=== PATIENT | male | born 1950 | race Caucasian/White ===

== ENCOUNTER → 2018-01-08 | Day surgery (SDC) | payer MEDICARE, BC ==
[~2018-01-08] MED LIST: Bupivacaine/Epinephrine 0.25% 30 ML VIAL ONE; CEFAZOLIN/Water 2 GM/20 ML SYRINGE ONE; Fentanyl 100 MCG/2 ML VIAL ONE; Glycopyrrolate 0.2 MG/ML 5 ML SYRINGE ONE; HYDROcodone/Acetaminophen 10/325 mg Tablet ONE; Ketorolac Tromethamine 30 MG/ML VIAL ONE; Lidocaine 1% PF 5 ML VIAL ONE; PROPOFOL 200 MG/20 ML VIAL ONE
[2018-01-08 10:09] LABS: #Basophils 0.1 thou/uL (0.0-0.2); #Eosinphils 0.2 thou/uL (0.0-0.7); #Lymphocytes 1.5 thou/uL (1.20-3.40); #Monocytes 0.5 thou/uL (0.11-0.59); #Neutrophils 4.8 thou/uL (1.40-6.50); %Basophils 0.9 % (0.0-1.0); %Eosinophils 2.3 % (0.0-10.0); %Lymphocytes 21.2 % (21.0-51.0); %Neutrophils 68.6 % (42.0-75.0); Hemoglobin 16.8 g/dL (14.0-18.0); Mean Corpuscular HGB CONC 34.5 g/dL (32.0-36.0); Mean Corpuscular Hemoglobin 33.6 pg (27.0-31.0); Mean Corpuscular Volume 97.3 fl (80.0-94.0); Mean Platelet Volume 6.9 fL (7.4-10.4); Platelet Count 217 thou/uL (130-400); RBC Distribution Width 11.5 % (11.5-14.5); Red Blood Cell (RBC) Count 4.99 mill/uL (4.70-6.10)
[2018-01-08 10:30] LABS: Anion Gap 14 mmol/L (10-20); BUN (Urea Nitrogen) 21 mg/dL (8.4-25.7); Calc. Creatinine Clearance 0 mL/min (70-130); Calcium 10.2 mg/dL (7.8-10.44); Carbon Dioxide 25 mmol/L (23-31); Chloride 103 mmol/L (98-107); Estimated GFR-MDRD 46; Glucose 108 mg/dL (80-115); Potassium 4.2 mmol/L (3.5-5.1); Sodium 138 mmol/L (136-145)
--- NOTE | 2018-01-09 09:56 | OP ---
DATE OF PROCEDURE: 01/08/2018 PREOPERATIVE DIAGNOSES: Umbilical hernia, bilateral inguinal hernia. POSTOPERATIVE DIAGNOSES: Umbilical hernia, bilateral inguinal hernia with bilateral direct inguinal hernias. OPERATION PERFORMED: Robotic bilateral inguinal hernia repair, open umbilical hernia repair, using s eparate pieces of mesh for all three hernias. SURGEON: Anastacio Solis M.D. ANESTHESIA: General endotracheal. INDICATIONS: The patient is a 67-year-old white male. He presented for evaluation of a large visibl e umbilical hernia and on examination was noted to have bilateral inguinal hernias as well. He is ta vladislav to the operating room at this time for robotic repair of the two inguinal hernias and open repair of the umbilical hernia. DESCRIPTION OF OPERATION: Informed consent was obtained. The patient was taken to the operating tamie m where general endotracheal anesthesia obtained with the patient in supine position. Colindres catheter was placed, abdomen was prepped with ChloraPrep and draped in sterile fashion. Local anesthetic was infiltrated using 0.25% Marcaine with epinephrine and a supraumbilical 12 mm incision was created th rough which a Veress needle was passed into the peritoneal cavity. Pneumoperitoneum was established using carbon dioxide up to a pressure of 15 mmHg. A 12 mm trocar port was passed through this same i ncision and robotic camera was passed through this port. Under direct vision, 2 additional 8 mm robo tic ports were placed on either side of midline at the supraumbilical level. The robot was then docked to the 3 ports into the robotic camera and the operation was continued from the robotic console. Inspection of the pelvic area revealed minimal visible evidence of an inguinal hernia. Attention was turned first to the right side. A transverse peritoneal incision was created and preperitoneal dissection was carried inferiorly. The patient had a thick layer of preperitoneal fat coating his abdominal wall that somewhat hampered the dissection. As the dissection was carried inferiorly, to the medial aspect I dissected the pubic tubercle and Demar's ligament. Laterally, I dissected the preperitoneal space passed the iliopubic tract. There was noted to be no evidence of an indirect inguinal hernia, however, in the direct space, there was a large volume of preperitoneal fat that was herniated through an obvious fairly substantial direct defect. After the peritoneum had been dissected widely, a large 3DMax mesh patch was obtained and placed with in the preperitoneal space where it fit nicely. It was secured in place with 3 interrupted sutures o f 2-0 Vicryl, placing one to the pubic tubercle, one to the anterior abdominal wall just medial to th e epigastric vessels, and one in the far lateral aspect of the mesh patch. The peritoneum was then c losed with a running suture of 3-0 Stratafix. Attention was then turned to the left side. A mirror image transverse incision was created. The rosalba e dissection was carried out. The patient was again noted to have a direct defect. The same size me sh patch was placed in the left side and secured in the same fashion and the peritoneum was then clos ed. The robotic ports were removed under direct vision. Attention was then turned to the umbilical herni a. Of note, when the port was placed, supraumbilical, it was intentionally placed through the umbilical hernia defect. The transverse umbilical incision was extended and the umbilicus was then widely diss ected off the underlying fascial defect. It was dissected anteriorly and posteriorly. I selected 4. 3 cm Ventralex mesh patch. This was placed in the preperitoneal space and the tails were pulled thro ugh the defect. They were then secured to the anterior aspect of the fascia superiorly and inferiorl y using single interrupted sutures of 0 Prolene. The lateral aspects of the defect were then secured with additional sutures of 0 Prolene, incorporating anterior bites of the anterior leaflet of the me sh patch. The umbilicus was then secured down to the fascia with 2 interrupted sutures of 3-0 Vicryl. The subc utaneous tissue was approximated with running suture of 3-0 Monocryl and the skin edges closed with 4 -0 Monocryl. Dermabond was placed externally. A compression dressing was an effected of cotton ball s with a Tegaderm dressing and Mastisol. The lateral robotic ports were closed with 4-0 Monocryl as well. There were no complications. Blood loss was negligible. The patient tolerated the procedure well and was taken to recovery room in sta ble condition.
--- NOTE | 2018-01-19 13:02 | EKG ---
Test Reason : PREOP Blood Pressure : / mmHG Vent. Rate : 063 BPM Atrial Rate : 063 BPM P-R Int : 162 ms QRS Dur : 092 ms QT Int : 406 ms P-R-T Axes : 027 -25 026 degrees QTc Int : 415 ms Normal sinus rhythm Normal ECG When compared with ECG of 12-DEC-2016 13:20, No significant change was found Confirmed by DR. Isidro HAYDEN ([id number]) on 01/19/2018 1:02:18 PM Referred By: ELLIE Confirmed By:DR. Isidro HAYDEN
== END ==
LOC: SDC 09:30
PROVIDERS: ATTEND Specialist
PROC: 0YUA4JZ Supplement Bilateral Inguinal Region with Synthetic Substitute, Percutaneous Endoscopic Approach (ICD-10-PCS; principal; 2018-01-08)
PROC: 0WUF0JZ Supplement Abdominal Wall with Synthetic Substitute, Open Approach (ICD-10-PCS; 2018-01-08)
DX: K40.20 Bilateral inguinal hernia, without obstruction or gangrene, not specified as recurrent (principal); K42.9 Umbilical hernia without obstruction or gangrene; F17.210 Nicotine dependence, cigarettes, uncomplicated; F41.9 Anxiety disorder, unspecified; F32.9 Major depressive disorder, single episode, unspecified; E78.5 Hyperlipidemia, unspecified; I10 Essential (primary) hypertension; K21.9 Gastro-esophageal reflux disease without esophagitis; Z79.899 Other long term (current) drug therapy; Z88.6 Allergy status to analgesic agent; Z88.8 Allergy status to other drugs, medicaments and biological substances
CPT/HCPCS: 49585; 49650; 80048; 85025; 93005; 96374; C1781 ×2; 36415; 93010; J0131; J1885; J2001; J2704; J3010

== ENCOUNTER 2021-08-09 11:57 | Outpatient (CLI) | payer MEDICARE, BC ==
[2021-08-09 22:21] LABS: SARS-CoV-2 PCR by NAA Not Detected (NotDetected)
== END 2021-08-09 11:58 | disposition home or self-care (01) ==
LOC: LABBT 11:57
PROVIDERS: ATTEND Urology
DX: Z01.812 Encounter for preprocedural laboratory examination (principal); Z20.822 Contact with and (suspected) exposure to COVID-19
CPT/HCPCS: U0003; U0005; 93005; 93010

== ENCOUNTER 2021-08-13 06:48 | Day surgery (SDC) | payer MEDICARE, BC ==
[2021-08-09 16:08] VITALS: BMI 29.4
[2021-08-13] MEDS ORDERED: Meropenem 1 GM in Sodium Chloride 0.9% 100 ML IVPB SCH (08:15)
[2021-08-13 08:18] LABS: #Eosinphils 0.1 thou/uL (0.0-0.7); #Lymphocytes 1.6 thou/uL (1.20-3.40); #Monocytes 0.8 thou/uL (0.11-0.59); #Neutrophils 5.4 thou/uL (1.40-6.50); %Basophils 0.5 % (0.0-1.0); %Eosinophils 1.6 % (0.0-10.0); %Lymphocytes 19.8 % (21.0-51.0); %Monocytes 9.7 % (0.0-10.0); %Neutrophils 68.4 % (42.0-75.0); Hemoglobin 16.4 g/dL (14.0-18.0); Mean Corpuscular HGB CONC 34.2 g/dL (32.0-36.0); Mean Corpuscular Hemoglobin 34.3 pg (27.0-31.0); Mean Platelet Volume 7.8 fL (7.4-10.4); Platelet Count 237 thou/uL (130-400); RBC Distribution Width 11.5 % (11.5-14.5); White Blood Cell (WBC) Count 7.9 thou/uL (4.8-10.8)
[2021-08-13 08:26] LABS: Anion Gap 18 mmol/L (10-20); BUN (Urea Nitrogen) 36 mg/dL (8.4-25.7); Calc. Creatinine Clearance 50 mL/min (70-130); Calcium 10.6 mg/dL (7.8-10.44); Carbon Dioxide 20 mmol/L (23-31); Chloride 98 mmol/L (98-107); Glucose 97 mg/dL (80-115); Potassium 3.5 mmol/L (3.5-5.1); Sodium 132 mmol/L (136-145)
[2021-08-13 08:34] LABS: PTT 36.1 sec (22.9-36.1); Prothrombin Time 13.6 sec (12.0-14.7)
[2021-08-13] MEDS ORDERED: Fentanyl 100 MCG/2 ML VIAL ONE (09:36)
[2021-08-13] MEDS ORDERED: Famotidine/PF 20 mg/2ml Vial ONE (09:36)
[2021-08-13] MEDS ORDERED: SUGAMMADEX SODIUM 200 MG/2 ML VIAL ONE (09:36)
[2021-08-13] MEDS ORDERED: Iothalamate Meglumine 60% 50 ML VIAL FS ONE (09:52)
[2021-08-13] MEDS ORDERED: Promethazine HCl 25 MG/ML VIAL IVPB PRN (09:57)
[2021-08-13] MEDS ORDERED: Ondansetron HCl/PF 4 MG/2 ML Vial IVP PRN (09:57)
[2021-08-13] MEDS ORDERED: Promethazine HCl 25 MG/ML VIAL IM PRN (09:57)
[2021-08-13] MEDS ORDERED: Dexamethasone 20 MG/5 ML VIAL ONE ×2 (10:06→10:38)
[2021-08-13] MEDS ORDERED: ePHEDrine 50 MG/ML VIAL ONE ×2 (10:06→10:38)
[2021-08-13] MEDS ORDERED: Lidocaine 1% PF 5 ML VIAL ONE ×2 (10:06→10:38)
[2021-08-13] MEDS ORDERED: Metoclopramide HCl 10 MG/2 ML VIAL ONE ×2 (10:06→10:38)
[2021-08-13] MEDS ORDERED: Ondansetron PF 4 MG/2 ML Vial ONE ×2 (10:06→10:38)
[2021-08-13] MEDS ORDERED: Phenylephrine 10 MG/ML VIAL ONE ×2 (10:06→10:38)
[2021-08-13] MEDS ORDERED: PROPOFOL 200 MG/20 ML VIAL ONE ×2 (10:06→10:38)
== END 2021-08-13 12:25 | disposition home or self-care (01) ==
LOC: SDC 06:48
PROVIDERS: ATTEND Urology
PROC: 0TND8ZZ Release Urethra, Via Natural or Artificial Opening Endoscopic (ICD-10-PCS; principal; 2021-08-13)
DX: N35.013 Post-traumatic anterior urethral stricture (principal); N31.2 Flaccid neuropathic bladder, not elsewhere classified; N40.0 Benign prostatic hyperplasia without lower urinary tract symptoms; N32.89 Other specified disorders of bladder; K21.9 Gastro-esophageal reflux disease without esophagitis; I10 Essential (primary) hypertension; E78.5 Hyperlipidemia, unspecified; M19.90 Unspecified osteoarthritis, unspecified site; G89.29 Other chronic pain; M54.9 Dorsalgia, unspecified; M79.7 Fibromyalgia; F17.210 Nicotine dependence, cigarettes, uncomplicated; B96.20 Unspecified Escherichia coli [E. coli] as the cause of diseases classified elsewhere; Z16.30 Resistance to unspecified antimicrobial drugs; Z79.2 Long term (current) use of antibiotics; Z79.899 Other long term (current) drug therapy; Z88.6 Allergy status to analgesic agent; Z88.8 Allergy status to other drugs, medicaments and biological substances; Z98.1 Arthrodesis status
CPT/HCPCS: 80048; 85025; 85610; 85730; J1100; J2185; J2370; J2405; J2704; J2765; J3010; J3490; Q9961-U8; S0028

== ENCOUNTER 2021-12-26 13:02 | Outpatient (CLI) | payer MEDICARE, BC | END 2021-12-26 13:03 | disposition home or self-care (01) | LOC: RAD 13:02 | PROVIDERS: ATTEND Internal Medicine Critical Care Medicine | DX: R06.00 Dyspnea, unspecified (principal) | CPT/HCPCS: 71046 ==

== ENCOUNTER 2024-06-06 13:13 | Inpatient (IN) | payer MEDICARE, BC ==
[2024-06-06] MEDS ORDERED: Dextrose 50% Abboject 50 ML SYRINGE SLOW IVP PRN (13:27)
[2024-06-06] MEDS ORDERED: Promethazine HCl 25 MG/ML VIAL IM PRN (13:27)
[2024-06-06] MEDS ORDERED: Ipratropium/Albuterol 3 ML NEB NEB PRN (13:27)
[2024-06-06] MEDS ORDERED: Dextrose 5% in Water 1,000 ML IV PRN (13:27)
[2024-06-06] MEDS ORDERED: hydrALAZINE 20 MG/ML VIAL SLOW IVP PRN (13:27)
[2024-06-06] MEDS ORDERED: Glucagon 1 MG/ML KIT IM PRN (13:27)
[2024-06-06] MEDS ORDERED: Ondansetron PF 4 MG/2 ML Vial IVP PRN (13:27)
[2024-06-06] MEDS: Lactated Ringer's 1,000 ML IV SCH (15:05)
[2024-06-06 15:29] VITALS: BMI 26.1
[2024-06-06 15:56] LABS: Hemoglobin 14.7 g/dL (14.0-18.0)
[2024-06-06] MEDS: Nicotine 14 MG PATCH TOP SCH (17:06)
[2024-06-06] MEDS: Melatonin 3 MG TAB PO PRN (20:10)
[2024-06-06] MEDS: Pantoprazole 40 MG VIAL IVP SCH (20:10)
[2024-06-07] MEDS: Morphine 4 MG/ML VIAL SLOW IVP PRN (02:32)
[2024-06-07 07:03] LABS: Anion Gap 12 mmol/L (10-20); BUN (Urea Nitrogen) 22 mg/dL (8.4-25.7); Calc. Creatinine Clearance 70 mL/min (70-130); Carbon Dioxide 21 mmol/L (23-31); Chloride 105 mmol/L (98-107); Estimated GFR 67; Glucose 83 mg/dL (83-110); Potassium 3.3 mmol/L (3.5-5.1); Sodium 135 mmol/L (136-145)
[2024-06-07 07:28] LABS: #Basophils 0.03 10x3/uL (0.0-0.2); %Basophils 0.4 % (0.0-1.0); %Eosinophils 0.5 % (0.0-10.0); %Lymphocytes 23.2 % (21.0-51.0); %Monocytes 8.5 % (0.0-10.0); %Neutrophils 67.1 % (42.0-75.0); Mean Corpuscular Hemoglobin 32.1 pg (27.0-31.0); Mean Corpuscular Volume 91.7 fL (78.0-98.0); Mean Platelet Volume 10.3 fL (7.4-10.4); Platelet Count 147 10x3/uL (130-400); Red Blood Cell (RBC) Count 4.36 mill/uL (4.70-6.10)
[2024-06-07] MEDS: Atenolol 50 MG TAB PO SCH (08:14)
[2024-06-07] MEDS ORDERED: traMADol HCl 50 MG TAB PO PRN ×2 (08:30)
[2024-06-08 11:08] VITALS: BP 124/80; TEMP 97.9
== END 2024-06-08 12:09 | disposition home or self-care (01) | DRG 379 ==
LOC: IMCU/EMU 14:36 → MSONC 06-07 17:27
PROVIDERS: ADMIT Surgery; ATTEND Surgery
DX: K92.2 Gastrointestinal hemorrhage, unspecified (principal); I10 Essential (primary) hypertension; K21.00 Gastro-esophageal reflux disease with esophagitis, without bleeding; F17.210 Nicotine dependence, cigarettes, uncomplicated; Z90.49 Acquired absence of other specified parts of digestive tract; K80.20 Calculus of gallbladder without cholecystitis without obstruction; K21.9 Gastro-esophageal reflux disease without esophagitis; F32.A Depression, unspecified; J44.9 Chronic obstructive pulmonary disease, unspecified; Z98.890 Other specified postprocedural states; F17.200 Nicotine dependence, unspecified, uncomplicated
CPT/HCPCS: 36415; 36430; 51702; 71045; 74177; 80048; 80053; 83605; 84484; 85025; 85610; 85730; 86850; 86900; 86901; 87040; 88304; 93005; 96374; 96375; C1889; J0612; J0694; J1100; J1720; J2272; J2405; J2470; J2543; J2704; J3010; J7120; P9016; P9048; P9059; Q9967

== ENCOUNTER 2025-05-13 06:03 | Day surgery (SDC) | payer MEDICARE, BC ==
[2025-05-12 12:02] VITALS: BMI 30.1
[2025-05-13] MEDS ORDERED: Albuterol 1.25 MG (3 mL) NEB ONE (06:54)
[2025-05-13] MEDS ORDERED: PROPOFOL 60 ML ONE (07:07)
[2025-05-13] MEDS ORDERED: fentaNYL PF 100 MCG/2 ML SYRINGE ONE (08:07)
[2025-05-13] MEDS ORDERED: Ondansetron PF 4 MG/2 ML Vial ONE (08:09)
[2025-05-13] MEDS ORDERED: PROPOFOL 20 ML ONE ×2 (08:42→08:44)
== END 2025-05-13 10:18 | disposition home or self-care (01) ==
LOC: SDC 06:03
PROVIDERS: ATTEND Internal Medicine Gastroenterology
PROC: 0DBC8ZZ Excision of Ileocecal Valve, Via Natural or Artificial Opening Endoscopic (ICD-10-PCS; principal; 2025-05-13)
PROC: 0DBL8ZZ Excision of Transverse Colon, Via Natural or Artificial Opening Endoscopic (ICD-10-PCS; principal; 2025-05-13)
PROC: 0DBH8ZZ Excision of Cecum, Via Natural or Artificial Opening Endoscopic (ICD-10-PCS; principal; 2025-05-13)
PROC: 0DBN8ZZ Excision of Sigmoid Colon, Via Natural or Artificial Opening Endoscopic (ICD-10-PCS; principal; 2025-05-13)
DX: Z12.11 Encounter for screening for malignant neoplasm of colon (principal); D12.5 Benign neoplasm of sigmoid colon; D12.0 Benign neoplasm of cecum; K63.5 Polyp of colon; K57.30 Diverticulosis of large intestine without perforation or abscess without bleeding; K21.9 Gastro-esophageal reflux disease without esophagitis; F17.210 Nicotine dependence, cigarettes, uncomplicated; Z96.653 Presence of artificial knee joint, bilateral; Z86.0100 Personal history of colon polyps, unspecified; Z98.41 Cataract extraction status, right eye; Z98.42 Cataract extraction status, left eye; Z90.49 Acquired absence of other specified parts of digestive tract; Z98.890 Other specified postprocedural states; Z88.6 Allergy status to analgesic agent; Z88.8 Allergy status to other drugs, medicaments and biological substances; Z79.899 Other long term (current) drug therapy
CPT/HCPCS: 45385; J2405; J2704 ×2; 88305